=== PATIENT | male | born 1990 | race Caucasian/White ===

== ENCOUNTER 2025-09-07 09:27 | Emergency (ER) | payer OTHER, SELFPAY ==
[2025-09-07 09:33] VITALS: BP 152/103; PULSE 94; TEMP 36.8; O2SAT 99; BMI 21.3
[2025-09-07 10:27] VITALS: PULSE 84; O2SAT 99
--- NOTE | 2025-09-07 13:39 | ED_ITS ---
HPI HPI - General Adult General Chief complaint: Skin/Abscess/Foreign Body Stated complaint: ABCESS ON NECK Time Seen by Provider: 09/07/25 09:29 Source: patient Mode of arrival: walk-in History of Present Illness HPI narrative: Patient is a healthy 35-year-old male presenting to the emergency department for evaluation of an abscess. Patient states he had an abscess on the left side of his neck for a few weeks now. The abscess did spontaneously drain a couple weeks ago, however he believes that it is reaccumulated. He denies any other associated symptoms. He has had no fevers or chills. No chest pain or shortness breath. No difficulty breathing or swallowing. He is otherwise healthy with no chronic medical conditions. Related Data Previous Rx's ?Medication ?Instructions ?Recorded sulfamethoxazole 800 1 tab PO BID 7 days #14 tabs 09/07/25 mg-trimethoprim 160 mg tablet (Bactrim DS) Allergies Allergy/AdvReac Type Severity Reaction Status Date / Time No Known Drug Allergies Allergy Verified 09/07/25 09:32 Review of Systems ROS Status of ROS 10 or more systems reviewed and unremark able except as noted in history and below PFSH PFSH Social History Little interest or pleasure in doing things: not at all Feeling down, depressed, or hopeless: not at all Exam Narrative Exam Narrative: CONSTITUTIONAL: Well-appearing, answering questions and following commands appropriately SKIN: Was warm and dry. EYES: Sclerae white. EARS, NOSE, THROAT: On the patient's left anterior neck there is a 1 cm x 1 cm fluctuant abscess. There is no overlying cellulitic changes such as induration or crepitus. Posterior oropharynx is clear without lesions, tonsil larger, or exudates. Uvula midline. No trismus. RESPIRATORY: Clear to auscultation bilaterally, no wheezes, crackles, or stridor, no use of accessory muscles CARDIOVASCULAR: Normal rate and regular rhythm. There is no S3, S4, murmur, rub. GASTROINTESTINAL: Abdomen is nondistended. MUSCULOSKELETAL: No peripheral edema. NEUROLOGIC: Patient is awake and alert. Facies were symmetrical. Constitutional Vital Signs, click to edit/add: Last Vital Signs Temp 98.3 F 09/07/25 09:33 Pulse 84 09/07/25 10:27 Resp 18 09/07/25 10:27 BP 152/103 H 09/07/25 09:33 Pulse Ox 99 09/07/25 10:27 O2 Del Method Room Air 09/07/25 09:33 Course Vital Signs Vital signs: Vital Signs Temperature 98.3 F 09/07/25 09:33 Pulse Rate 94 H 09/07/25 09:33 Respiratory Rate 16 09/07/25 09:33 Blood Pressure 152/103 H 09/07/25 09:33 Pulse Oximetry 99 09/07/25 09:33 Oxygen Delivery Method Room Air 09/07/25 09:33 Temperature 98.3 F 09/07/25 09:33 Pulse Rate 84 09/07/25 10:27 Respiratory Rate 18 09/07/25 10:27 Blood Pressure 152/103 H 09/07/25 09:33 Pulse Oximetry 99 09/07/25 10:27 Oxygen Delivery Method Room Air 09/07/25 09:33 Medical Decision Making MDM Narrative Medical decision making narrative: Patient is a 35-year-old male presenting to the emergency department for evaluation of an abscess on the left anterior neck. His vital signs are significant for hypertension, otherwise were within normal limits. He is afebrile and hemodynamically stable. Patient's history and physical examination is consistent with a soft tissue abscess. He has full range of motion of the neck and no evidence of any airway compromise or deep space infection. The abscess was I&D (see procedure note for full dictation) and approximate 5 cc of purulent material was expressed. Patient tolerated procedure well without complication. I do believe the patient is stable for discharge. They were instructed to follow up with his PCP for further care. Return precautions were given including any new or worsening symptoms. They were given a prescription for Bactrim DS twice daily x 7 days. Patient understands and agrees to the plan. FINAL IMPRESSION: #Acute soft tissue abscess requiring I&D DISPOSITION: Discharged home CONDITION: Good Discharge Plan Discharge Chief Complaint: Skin/Abscess/Foreign Body Clinical Impression: Abscess of skin or subcutaneous tissue Patient Disposition: Home, Self-Care Time of Disposition Decision: 10:06 Condition: Good Mode of Transportation: Private Vehicle Prescriptions / Home Meds: New sulfamethoxazole-trimethoprim [Bactrim DS] 800-160 mg tablet 1 tab PO BID 7 Days Qty: 14 0RF Print Language: Mohawk Instructions: Abscess (ED), Incision and Drainage (ED) Discharge Date/Time: 09/07/25 10:27 Procedures ED ID Incision & Drainage I&D Type: abcess Site: neck Side (if applicable): left Technique: incised with #11 blade Amount of fluid (mL): 5 Irrigation: No Packing used: none
== END 2025-09-07 10:27 | disposition home or self-care (01) ==
LOC: ER 10:09
PROVIDERS: Emergency Provider Student in an Organized Health Care Education/Training Program
DX: L02.11 Cutaneous abscess of neck (principal)
CPT/HCPCS: 10060; 99283